=== PATIENT | female | born 1950 | race Caucasian/White ===

== ENCOUNTER 2016-11-13 08:37 | Outpatient (CLI) | payer MEDICARE, BC | END 2016-11-13 09:40 | LOC: D.MAMMO 08:37 | DX: Z12.31 Encounter for screening mammogram for malignant neoplasm of breast (principal) ==

== ENCOUNTER 2019-04-21 08:00 | Outpatient (CLI) | payer MEDICARE, BC | END 2019-04-21 23:59 | disposition home or self-care (01) | LOC: D.MAMMO 08:00 | PROVIDERS: ATTEND Family Medicine | DX: Z12.31 Encounter for screening mammogram for malignant neoplasm of breast (principal) ==